=== PATIENT | female | born 1935 | race Caucasian/White ===

== ENCOUNTER → 2016-11-29 | Outpatient (CLI) | payer MEDICARE, BC ==
[~2016-11-29] MED LIST: ARIMIDEX1 M1 PO; ASCORBIC ACID500 MG PO; ASPIRIN EC81 MG PO; BYSTOLIC10 MG PO; BYSTOLIC5 MG PO; CALCIUM + VITA1 EACH PO; CARDIZEM CD (T240 MG PO; CORDARONE,PACE200 MG PO; DIOVAN160 MG PO; DRISDOL 5050000 UNIT PO; EFFEXOR75 MG PO; FLOVENT DISKU100 MCG INH; GLUCOPHAGE500 MG PO; HYZAAR 100-12.1 EACH PO; LANOXIN (DIGI125 MCG PO; LANOXIN (DIGI250 MCG PO; LASIX20 MG PO; LASIX40 MG PO; LEVOTHROID (S100 MCG PO; LOVENOX 6060 MG/0.6 SUB-Q; MOBIC15 MG PO; NORCO 5-325 MG1 TAB PO; NORVASC2.5 MG PO; OCUVITE SOFTGE1 EACH PO; PEPCID AC20 MG PO; POTASSIUM CHLO10 MEQ PO; PRESERVISION L1 EACH PO; SENOKOT8.6 MG PO; STOOL SOFTENER1 EACH PO; VITAMIN D50000 UNIT PO; XARELTO20 MG PO
== END | disposition disaster alternative care site (69) ==
LOC: LCNC 13:04
DX: E03.2 Hypothyroidism due to medicaments and other exogenous substances (principal)

== ENCOUNTER → 2017-01-02 | Day surgery (SDC) | payer MEDICARE, BC ==
[~2017-01-02] VITALS: Ht 165.1 cm; Wt 67.0 kg
== END | disposition disaster alternative care site (69) ==
LOC: GPOC 01-01 15:00 → GSDC 14:08
PROC: 3E0R3BZ Introduction of Anesthetic Agent into Spinal Canal, Percutaneous Approach (ICD-10-PCS; principal; 2017-01-02)
PROC: 3E0R33Z Introduction of Anti-inflammatory into Spinal Canal, Percutaneous Approach (ICD-10-PCS; 2017-01-02)
DX: M54.5 Low back pain (principal); M48.06 Spinal stenosis, lumbar region; E11.9 Type 2 diabetes mellitus without complications; E07.9 Disorder of thyroid, unspecified; Z88.0 Allergy status to penicillin; Z88.8 Allergy status to other drugs, medicaments and biological substances
CPT/HCPCS: J1030; J1040

== ENCOUNTER → 2017-01-20 | Outpatient (CLI) | payer MEDICARE, BC ==
[2017-01-20 13:52] LABS: BASOPHIL % 0.2 %; EOSINOPHIL # 0.1 K/uL (0.0-0.5); EOSINOPHIL % 1.1 %; HEMATOCRIT 38.3 % (30.0-46.0); IMMATURE GRANULOCYTE % 0.4 %; LYMPHOCYTE # 1.1 K/uL (0.8-4.0); LYMPHOCYTE % 20.6 %; MCH 30.4 pg (27.0-34.0); MCHC 33.9 gm/dL (32.0-36.5); MCV 89.5 fl (83.0-98.0); MONOCYTE # 0.4 K/uL (0.0-1.0); MONOCYTE % 8.2 %; MPV 9.6 fl (9.4-12.4); NEUTROPHIL # (ANC) 3.7 K/uL (1.8-7.8); NEUTROPHIL % 69.5 %; NRBC % 0 /100WBC (0-0.00); PLATELET COUNT 181 K/uL (150-450); RBC 4.28 M/uL (3.00-5.00); RDW-CV 13.5 % (11.9-14.6); WBC 5.4 K/uL (4.0-11.0)
[2017-01-20 14:09] LABS: ALBUMIN 3.7 gm/dL (3.5-5.0); ANION GAP 15.2 (10.0-19.0); CALCIUM 8.6 mg/dL (8.5-10.5); CREATININE 1.1 mg/dL (0.5-1.1); PHOSPHORUS 3.4 mg/dL (2.5-4.9); POTASSIUM 4.2 mMol/L (3.7-5.1); TOTAL BILIRUBIN 0.5 mg/dL (0.0-1.5)
== END | disposition disaster alternative care site (69) ==
LOC: LCNC 13:47
PROVIDERS: Internal Medicine Interventional Cardiology
DX: R53.1 Weakness (principal); E03.2 Hypothyroidism due to medicaments and other exogenous substances

== ENCOUNTER → 2017-01-20 | Outpatient (CLI) | payer MEDICARE, BC | END | disposition disaster alternative care site (69) | LOC: GRAD 14:00 | DX: R06.02 Shortness of breath (principal); I70.0 Atherosclerosis of aorta; I77.819 Aortic ectasia, unspecified site; J92.9 Pleural plaque without asbestos; Z98.890 Other specified postprocedural states ==

== ENCOUNTER → 2017-01-21 | Outpatient (CLI) | payer MEDICARE, BC ==
--- NOTE | ~2017-01-21 | ESTC ---
Cardiac Perfusion Imaging Demographics Patient Name MILTON Jaquez Gender Female Patient Number [id number] Race Visit Number [id number] Ethnicity Corporate ID Room Number Accession Number [id number] Height 65 inches Date of 1935 Weight 150 pounds Interpreting Harmeet Dior MD Date of study 01/21/2017 Physician Supervising /SIMONE Zhang NM Technologist Corrina Moralez APRN Ordering Physician Harmeet Dior MD Stress crane service technician Stress ECG Reading Cathleen Zhang Nurse Leah Streeter Physician JULIETH RN Gracie Chinchilla RN The procedure was explained in detail to the patient. Risks, complications and alternative treatments were reviewed. Written consent was obtained. Medications Reviewed with Patient prior to Procedure. Procedure Procedure Type: Nuclear Stress Test:Pharmacological, Cardiolite Stress Test Procedure Start time: 01/21/2017 10:00 Indications: Dyspnea with exertion. Risk Factors The patient risk factors include:hypercholesterolemia, treated hypertension, family history of premature CAD and prior valve surgery/procedure . Conclusions Summary Cardiolite SPECT images demonstrate a septal defect of moderate to severe severity. This is located in the basal septum. TID is at the upper limits of normal at 1.07 Gated images demonstrate mild basal septal hypokinesis with overall preserved left ventricular systolic function. LVEF is 66% Stress Protocols Resting HR:68 bpm Resting BP:186/79 mmHg Pre-stress physical exam: Pharmacologic stress testing was performed due to weakness. BP was elevated prior to the stress. Stress Protocol:Pharmacologic Peak HR:101 bpm HR response: Appropriate Peak BP:171/91 mmHg BP response: Appropriate Predicted HR: 139 bpm HR/BP product:50935 % of predicted HR: 73 Reason for termination:Infusion complete ECG Findings SR with 1 degree AV block Arrhythmias None Symptoms Nausea, chest pressure. Blood pressure remained elevated throughout test. Stress Interpretation Appropriate hemodynamic response to Lexiscan. No significant ST-T wave changes with Lexiscan. ECG portion is negative for ischemia by diagnostic criteria. Stress supervision and interpretation provided by Mariely Connolly APRN . Imaging Results Summed scores - Summed stress score: 15 - Summed rest score: 12 - Summed difference score: 3 Stress ejection Ejection fraction:67 % EDV :78 ml ESV :26 ml Stroke volume :52 ml LV mass :101 gr Imaging Protocols Rest Stress Isotope:Tc99m Sestamibi IV Isotope: Tc99m Sestamibi IV Isotope dose:11.6 mCi Isotope dose:33.1 mCi Date:01/21/2017 07:46 Date:01/21/2017 10:08 Technique: SPECT Technique: Gated Supine SPECT Supine Scan Time:45-60 minutes post Scan Time:45-60 minutes post injection injection Procedure Medications - Regadenoson (Lexiscan) 0.4 mg IV over 10-15 sec. I.V. 0.4 mg. Medical History Admission Data Admission date: 01/21/2017 Admission Time: 07:15 Hospital Status: Outpatient. Signatures dtt: Ovi Ga (cardio) dtd: 01/21/17 1000 Physician Self Edit
== END | disposition disaster alternative care site (69) ==
LOC: GRAD 07:15
DX: R06.00 Dyspnea, unspecified (principal); E78.00 Pure hypercholesterolemia, unspecified; I10 Essential (primary) hypertension; Z82.49 Family history of ischemic heart disease and other diseases of the circulatory system; Z95.2 Presence of prosthetic heart valve
CPT/HCPCS: A9500; J2785

== ENCOUNTER 2017-01-28 06:27 | Outpatient (CLI) | payer MEDICARE, BC ==
[~2017-01-28] VITALS: Ht 165.1 cm; Wt 65.1 kg
--- NOTE | ~2017-01-28 | CATH ---
Cardiac Diagnostic Report Demographics Patient Name MILTON Jaquez Gender Female Date of 1935 Age 81 year(s) Patient Number [id number] Date of Study 01/28/2017 Visit Number [id number] Room Number G6399 [place] [id number] Ht 165.1 cm Wt 29.53 kg Referring Radha Hall Primary Physician Physician MD Performing Harmeet Dior MD Secondary Physician Physician Diagnostic Harmeet Dior MD Assisting Physician Physician Interventional Physician Executive Office Manager Physician Findings and Conclusions Diagnostic Findings and Conclusion Non-obstructive CAD. Elevated right heart pressure. Normal LV function. Diagnostic Recommendations Evaluate for pulmonary causes of dyspnea. Medical therapy. Procedure Description The patient was brought to the diagnostic cardiac catheterization-EP laboratory in the fasting, non-sedated state. Informed consent was obtained in the written and verbal form after the risks and benefits were explained. The patient had no further questions and agreed to proceed. The planned puncture-incision site(s) were shaved and prepped with ChloraPrep and draped in the usual sterile manner. Conscious sedation and pain control medications were delivered by a registered nurse under physician guidance. Surface ECG rhythm, blood pressure measurement, and pulse oximetry were monitored throughout the procedure. Arterial access. The access site was infiltrated with lidocaine. The vessel was entered with the Seldinger technique. A sheath was advanced into the vessel and used for catheter placement. Venous access. The access site was infiltrated with 2% lidocaine. The vessel was entered with the Seldinger technique. A sheath was advanced into the vessel and used for catheter placement. Selective left coronary angiography. A catheter was advanced into the left coronary vessel ostium under Fluoroscopic guidance. Contrast was injected by hand. Images were obtained in multiple projections. Selective right coronary angiography. A catheter was advanced into the right coronary vessel ostium under fluoroscopic guidance. Contrast was injected by hand. Images were obtained in multiple projections. Left heart catheterization. A catheter was advanced across the aortic valve to the left ventricle under fluoroscopic guidance. Resting hemodynamics were obtained. Right heart catheterization. A [place] Ian catheter was successfully advanced to the right atrium, right ventricle, pulmonary artery, and pulmonary artery wedge position under fluoroscopic guidance. Resting hemodynamics were obtained. Measurements included pressures, arterial and venous oxygen saturation samples, and cardiac output. The [place] was removed without difficulty. Arterial and Venous hemostasis was achieved. The patient was transferred to a regular nursing floor via cart accompanied by a nurse. The patient left the laboratory in stable condition. Diagnostic Cath Status: Elective Procedure Procedure Type Diagnostic procedure:Ventriculogram:, Left, Angiography:, Right and Left Heart Cath, Coronary Angios Indications: Dyspnea with exertion, Fatigue, Atrial fibrillation and Positive Nuclear: Intermediate. The procedure was explained in detail to the patient. Risks, complications and alternative treatments were reviewed. Written consent was obtained. Medications Reviewed with Patient prior to Procedure. Angiographic Findings Dominance: Right Cardiac Arteries and Lesion Findings LMCA: Normal (0% Stenosis).Short, large. LAD: Normal (0% Stenosis).Medium. Diag large, ostial plaque. LCx: Normal (0% Stenosis).Large, non-dominant. OM 1 and 2 small. OM 3 large, normal. RCA: Normal (0% Stenosis).Large. PL medium. PDA medium. Procedure Data Procedure Date Date: 01/28/2017Start: 08:00 AMEnd: 08:56 AM Entry Locations - Retrograde Percutaneous access was performed through the Right Femoral artery (Primary location). A 6 Fr sheath was inserted. Hemostasis was successfully obtained using Perclose ProGlide (Chang). Closure Comments: Deployed by Margarito García.. - Antegrade Percutaneous access was performed through the Right Femoral vein. A 7 Fr sheath was inserted. Hemostasis was successfully obtained using Manual Compression. Closure Comments: Pressure held by Margarito García. . Procedure Medications Order and Administration + + +-------+------+ !Time !Medication !Dosage !Route ! + + +-------+------+ !01/28/2017 07:59 AM !Versed !1 mg !I.V. ! + + +-------+------+ !01/28/2017 07:59 AM !Fentanyl !25 mcg !I.V. ! + + +-------+------+ !01/28/2017 08:44 AM !Fentanyl !50 mcg !I.V. ! + + +-------+------+ Devices Used - A5 Fr. BS Angled Pigtail Diag. Catheterwas used for:Left ventriculography. - A6 Fr. BS JL 4 Diag. Catheterwas used for:Left coronary angiography. - A6 Fr. BS JR 4 Diag. Catheterwas used for:Right coronary angiography. Contrast Material - Isovue 180345 ml Fluoroscopy Time: Diagnostic: 6:18 minutes. Total: 6:18 minutes. Fluoroscopy Dose: Diagnostic: 634 mGy. Total: 634 mGy. Estimated Blood Loss: 4 ml. Medical History Performed Procedures and Imaging Results - Stress testing with SPECT MPIwas performed. Results were: Positive. Allergies - Penicillin. - Other:(betablockers, statins). Risk Factors The patient risk factors include:treated hypercholesterolemia, treated hypertension, family history of premature CAD, orally-treated diabetes mellitus, last creatinine: 1.1 mg/dl, creatinine clearance: 18.7 ml/min, prior valve surgery/procedure, dyslipidemia and previous femoral procedure. Admission Data Admission Date: 01/28/2017 Admission Time: 06:27 AM Admit Source: Other Insurance Payors: Medicare. Admission Medications + +------+-------+ + + + + !Medication!Dosage!Times !Last !Last !Administered !Comments ! ! ! !Per Day!Delivery !Delivery ! ! ! ! ! ! !Date !Time ! ! ! + +------+-------+ + + + + !ARB (any) ! ! ! ! ! ! ! + +------+-------+ + + + + [facility] Ventriculography Findings Hyperkinetic. EF 70-75%. No MR. LV function assessed as:Abnormal. Ejection Fraction - 01/28/2017 - Method: LV gram. EF%: 75. Hemodynamics Condition: Rest O2 Consumption: Estimated: 114.11Heart Rate: 78 bpm Oxygen Saturation +--------+-----+----+ +---+ + !Location!pCO2 !pO2 !% Saturation !Hgb!O2 Content ! +--------+-----+----+ +---+ + !SVC ! ! !65.7 !13 ! ! +--------+-----+----+ +---+ + !IVC ! ! !77.5 !13 ! ! +--------+-----+----+ +---+ + !RA ! ! !67.9 !13 ! ! +--------+-----+----+ +---+ + !PA ! ! !69.3 !13 ! ! +--------+-----+----+ +---+ + !FA ! ! !94.4 !13 ! ! +--------+-----+----+ +---+ + Pressures (mmHg) +-----+ + !Site !Pressure ! +-----+ + !RA !2/1 (0) ! +-----+ + !RV !11/0 ,1 ! +-----+ + !PCW !16 (10) ! +-----+ + !PA !17/08 (11) ! +-----+ + !LV !184/ ,12 ! +-----+ + !PA !20/08 (13) ! +-----+ + !LV !184/4 ,13 ! +-----+ + !PA ! (17) ! +-----+ + !LV !180/1 ,11 ! +-----+ + !PCW !1620 (11) ! +-----+ + !LV !182/0 ,12 ! +-----+ + !PA !37/ (23) ! +-----+ + !LV !186/4 ,13 ! +-----+ + !PA !36/ (23) ! +-----+ + !LV !179/2 ,11 ! +-----+ + !LV !178/4 ,12 ! +-----+ + !LV !172/2 ,12 ! +-----+ + !LV !170/3 ,12 ! +-----+ + !AO !180/73 (118) ! +-----+ + !LV !171/2 ,12 ! +-----+ + !AO !182/75 (119) ! +-----+ + !RV !46/5 ,9 ! +-----+ + !RV !44/1 ,8 ! +-----+ + !RV !46/ ,9 ! +-----+ + !RA !05/05 (4) ! +-----+ + Cardiac Output + + +------+ !Time !Cardiac Output (l/min) !Use ! + + +------+ !01/28/2017 08:28 AM !5.06 !True ! + + +------+ !01/28/2017 08:29 AM !4.58 !True ! + + +------+ !01/28/2017 08:33 AM !4.45 !False ! + + +------+ !01/28/2017 08:33 AM !5.28 !True ! + + +------+ !01/28/2017 08:34 AM !5.03 !True ! + + +------+ !01/28/2017 08:34 AM !5.63 !False ! + + +------+ Cardiac Output +-------+ + + + !Method !CO (l/min) !CI (l/min/m2) !SV (ml) ! +-------+ + + + !Ariadna !2.57 !2.1 !32.87 ! +-------+ + + + !Thermal!4.9875 !4.1 !59.2 ! +-------+ + + + Valve Gradients and Areas + +--------+--------+--------+---------+ + + !Valve !Peak !Mean !Area !Index !Flow !Source ! + +--------+--------+--------+---------+ + + !Aortic !0 !0 ! ! !755.88 !Ariadna ! + +--------+--------+--------+---------+ + + !Aortic !0 !0 ! ! !1466.91 !Thermal ! + +--------+--------+--------+---------+ + + Shunts Oxygen Values O2 Consumption 114.11 Flows (l/min) Qs 2.51 Vascular Resistance (dynes x sec x cm-5) + +-----+-----+----+----+---------+-------+ !CO method !TSVR !SVR !TPVR!PVR !TPVR/TSVR!PVR/SVR! + +-----+-----+----+----+---------+-------+ !Ariadna !46.25!44.67!9.03!4.63!0.2 !0.1 ! + +-----+-----+----+----+---------+-------+ !Thermal !23.83!23.02!4.66!2.39!0.2 !0.1 ! + +-----+-----+----+----+---------+-------+ !Qp or Qs !47.36!45.74! ! ! ! ! + +-----+-----+----+----+---------+-------+ Discharge Data Discharge Date: 01/28/2017 Hospital Status: Outpatient Signatures dtt: Ovi Ga (cardio) dtd: 01/28/17 0800 Physician Self Edit
[~2017-01-28 06:27] MED LIST changes: -FLOVENT DISKU100 MCG INH; -LANOXIN (DIGI250 MCG PO; -LASIX20 MG PO; -LOVENOX 6060 MG/0.6 SUB-Q; -SENOKOT8.6 MG PO; -VITAMIN D50000 UNIT PO
[2017-02-17] MEDS ORDERED: CORDARONE,PACE200 MG PO (16:29)
[2017-02-17] MEDS ORDERED: FLOVENT DISKU100 MCG INH (16:35)
[2017-02-17] MEDS ORDERED: SENOKOT8.6 MG PO (16:39)
[2017-02-17] MEDS ORDERED: LANOXIN (DIGI250 MCG PO (16:42)
[2017-05-08] MEDS ORDERED: VITAMIN D50000 UNIT PO (10:54)
[2017-05-08] MEDS ORDERED: LOVENOX 6060 MG/0.6 SUB-Q (10:56)
[2017-05-14] MEDS ORDERED: LASIX20 MG PO (12:16)
== END 2017-01-28 12:30 | disposition disaster alternative care site (69) ==
LOC: GPCU 06:27 → GPOC 06:27
PROC: 4A023N8 Measurement of Cardiac Sampling and Pressure, Bilateral, Percutaneous Approach (ICD-10-PCS; principal; 2017-01-28)
PROC: B216YZZ Fluoroscopy of Right and Left Heart using Other Contrast (ICD-10-PCS; 2017-01-28)
DX: R94.39 Abnormal result of other cardiovascular function study (principal); I20.0 Unstable angina
CPT/HCPCS: C1760; J1644; J2001; J2250; J3010; J7030; J7060

== ENCOUNTER → 2017-01-29 | Outpatient (CLI) | payer MEDICARE, BC ==
[~2017-01-29] MED LIST changes: +FLOVENT DISKU100 MCG INH; +LANOXIN (DIGI250 MCG PO; +LASIX20 MG PO; +LOVENOX 6060 MG/0.6 SUB-Q; +SENOKOT8.6 MG PO; +VITAMIN D50000 UNIT PO
--- NOTE | ~2017-01-29 | PUL ---
PATIENT'S NAME: DERRICK ROSE [facility] AGE: 81 Y [address] ROOM: [place] [address] LOCATION: [facility] ADMIT DATE: 01/29/2017 Pulmonary DISCHARGE DATE: FAMILY PHYSICIAN: Brooks Garcia MD ATTENDING PHYSICIAN: Ovi Ga NAME OF PROCEDURE: Pulmonary Function Test DATE OF PROCEDURE: January 29, 2017 TECH: ATripe, IT NETWORK ENGINEER REASON FOR EXAM: Shortness of breath RESULTS: Spirometry reveals normal FVC at 2.52 which is 94% predicted, normal FEV1 at 1.62 which is 81% predicted, normal FEV1/FVC ratio at 64%, there is no significant bronchodilator response. Lung volumes reveal normal TLC at 4.42 which is 90% predicted, normal VC at 2.5 which is 94% predicted, normal RV at. 0.77 which is 84% predicted, RV/TLC ratio is normal at 43%. PHYSICIAN INTERPRETATION: This is an essentially normal pulmonary function test. Although the FEV1/FVC ratio is below the goal standard of 70 it lies within the normal confidence interval subsequently this is a normal pulmonary function test. Thank you for allowing me to consult of this patient. MD MERON CLAY/denzel /[id number] dtt: 02/10/17 1043 , Migel Cleary. dtd: 01/30/17 1213
== END | disposition disaster alternative care site (69) ==
LOC: GRTH 08:42
DX: R06.02 Shortness of breath (principal); F17.200 Nicotine dependence, unspecified, uncomplicated

== ENCOUNTER → 2017-02-18 | Day surgery (SDC) | payer MEDICARE, BC ==
[~2017-02-18] VITALS: Ht 165.1 cm; Wt 65.4 kg
--- NOTE | ~2017-02-18 | OR ---
PATIENT'S NAME: DERRICK ZARATE [facility] AGE: 81 Y [address] ROOM: [place] [address] LOCATION: [facility] ADMIT DATE: 02/18/2017 OR/Procedure Report DISCHARGE DATE: FAMILY PHYSICIAN: Brooks Garcia MD ATTENDING PHYSICIAN: Agustin Anderson SURGEON: Agustin Anderson MD INTERNAL CORROSION SPECIALIST: DATE OF PROCEDURE: 02/18/2017 PROCEDURE PERFORMED: Cardioversion. INDICATION: Recurrent atrial fibrillation refractory to antiarrhythmic drug therapy. DESCRIPTION OF PROCEDURE: Mrs. Zarate was brought to the preop suite in the fasting state and prepped and draped in the normal manner. Patches were placed in the AP dimension. Next, propofol was administered through the nurse sales professional bilingual. A total of 60 mg was given. Once adequate levels of sedation were obtained, 200 joules of synchronized therapy was delivered with prompt congregation of normal sinus rhythm. A 12- lead EKG is pending at the time of this dictation. CONCLUSIONS: 1. Successful congregation of normal sinus rhythm using direct current cardioversion. 2. A 12-lead EKG pending at the time of this dictation. 3. The patient will continue on antiarrhythmic drug therapy and follow up with me in 2 weeks. I would like to thank Dr. Garcia for the opportunity to participate in the care of Mrs. Zarate. AGUSTIN ANDERSON MD DJM/modl /[id number] CC: Brooks Garcia MD d: 02/19/17 1047 t: 02/26/17 1219, OPERATIVE SUMMARY
== END | disposition disaster alternative care site (69) ==
LOC: GPOC 02-17 16:00 → GSDC 08:56 → EDSTATUS 09:00 → GPOC 09:00
DX: I48.1 Persistent atrial fibrillation (principal); T46.2X5A Adverse effect of other antidysrhythmic drugs, initial encounter; E78.00 Pure hypercholesterolemia, unspecified; I10 Essential (primary) hypertension; M19.90 Unspecified osteoarthritis, unspecified site; M81.0 Age-related osteoporosis without current pathological fracture; E11.9 Type 2 diabetes mellitus without complications; E78.5 Hyperlipidemia, unspecified; G43.909 Migraine, unspecified, not intractable, without status migrainosus; K21.9 Gastro-esophageal reflux disease without esophagitis; I34.0 Nonrheumatic mitral (valve) insufficiency; E03.2 Hypothyroidism due to medicaments and other exogenous substances; Z85.3 Personal history of malignant neoplasm of breast; Z98.41 Cataract extraction status, right eye; Z98.42 Cataract extraction status, left eye; Z90.710 Acquired absence of both cervix and uterus; Z98.890 Other specified postprocedural states; Z79.899 Other long term (current) drug therapy; Z88.8 Allergy status to other drugs, medicaments and biological substances; Z88.0 Allergy status to penicillin
CPT/HCPCS: J2001; J7030

== ENCOUNTER 2017-02-25 09:07 | Day surgery (SDC) | payer MEDICARE, BC ==
[~2017-02-25] VITALS: Ht 165.1 cm; Wt 66.8 kg
--- NOTE | ~2017-02-25 | OR ---
PATIENT'S NAME: DERRICK ROSE [facility] AGE: 81 Y [address] ROOM: [place] [address] LOCATION: [facility] ADMIT DATE: 02/25/2017 OR/Procedure Report DISCHARGE DATE: 02/26/2017 FAMILY PHYSICIAN: Brooks Garcia MD ATTENDING PHYSICIAN: Agustin Ga SURGEON: Agustin Ga MD DATABASE MARKETING ANALYST: DATE OF PROCEDURE: 02/25/2017 INDICATION: Sick sinus syndrome, now with persistent atrial fibrillation PROCEDURE: Dual chamber pacemaker implantation PROCEDURE/FINDINGS: Patient was brought to cardiac roofing laborer in the fasting state and prepped and draped in the normal manner. Versed and fentanyl were given for conscious sedation. 1% lidocaine was used for local skin infiltration of the left infraclavicular region. 18 gauge Cook needle was advanced to the left subclavian vein through which an 0.025 wire was placed. Needle was removed. Proximal end of the were was attached to the surgical gown. Next, a second access point was also obtained with the 18 gauge Cook needle. 0.025 wire was placed. Needle was removed. Proximal end of the wire was attached to the surgical gown with a hemostat. Attention was then turned towards creation of the pacemaker pocket where additional 1% lidocaine was given. Next, a #11 blade was used for primary skin incision. Following this using Bovie cautery as well as blunt dissection, the pectoralis muscle was identified. This is entered into and dissected both cephalad as well as caudally. The previously placed 0.025 wires were brought through the skin into the pacemaker pocket. The first wire had a 7F sheath placed onto it. Wire and dilator were removed. Using fluoroscopic guidance, the right ventricular lead was placed. This is a [employer] INGEVITY lead, model #7741, serial #[id number]. Thresholds were obtained showing an intrinsic R-wave of 6.4 mV, threshold 0.5 at 0.4 milliseconds pulse width, impedance of 839 ohms. Next, the shoulder sleeve was sewn into the pectoralis muscle using two interrupted sutures of zero silk. The second wire had a 7F sheath placed onto it. Wire and dilator were removed. Using fluoroscopic guidance, right atrial lead was placed. This was a [employer] INGEVITY lead, model #36200, serial #[id number]. Thresholds show an intrinsic P wave of 1.4 mV, impedance of 888 ohms; patient was noted to be in atrial fibrillation. Two interrupted sutures of zero silk were used to anchor the shoulder sleeve into the pectoralis muscle. Following this, both of these leads were then connected to the pacemaker generator which is a [employer] ESSENTIO, model # L111, serial # [id number]. Subcutaneous layer was closed with 2-0 Vicryl in a running fashion. Following this the subcuticular layer was closed with 4.0 Vicryl also in running fashion. Steri-strips were applied as well as a PATIENT'S NAME: DERRICK ROSE [facility] AGE: 81 Y [address] ROOM: [place] [address] LOCATION: [facility] ADMIT DATE: 02/25/2017 OR/Procedure Report DISCHARGE DATE: 02/26/2017 FAMILY PHYSICIAN: Brooks Garcia MD ATTENDING PHYSICIAN: Agustin Ga pressure dressing and Tegaderm dressing. There were no complications. CONCLUSION: 1. Dual-chamber pacemaker implantation for sick sinus syndrome. 2. Patient is instructed not to use her left arm for one week, patient is to continue the use of the shoulder immobilizer. 3. Patient will be set up for the home use of the CEYX remote monitoring system. AGUSTIN GA MD DJM/gb /[id number] CC: Printer CARDIOPULMINARY d: 03/18/17 1201 t: 03/21/17 0913, OPERATIVE SUMMARY
[~2017-02-25 09:07] MED LIST changes: -LASIX20 MG PO; -LOVENOX 6060 MG/0.6 SUB-Q; -VITAMIN D50000 UNIT PO
--- NOTE | 2017-02-25 19:13 | NUR ---
Significant Event: A/O x3, [facility]. VSS, SBP 138, HRs 70-90s, on room air. No c/o pain. Pace maker site to L) subclavian, covered with gauze et transparent dressing; dressing C/D/I. L) arm in immobilizer; patient reminded not to use are. Up to bathroom with SBA; up in chair. Follow up: D/C home tomorrow
--- NOTE | 2017-02-26 04:16 | NUR ---
Significant Event: A/0 X 3, AMBULATES STAND BY ASSIST. HR PACED 70-80'S, SBP 120'S TO 130'S. LEFT SUBLCAVIAN PACEMAKER SITE DRESSING C/D/I, WITH NO COMPLICATIONS, VERY MILD EDEMA. SHE HAS HAD NO COMPLICATIONS THIS EVENING AND RESTED WELL. 1 NORCO GIVEN X 1 AT 2109. Follow up: DISCHARGE TODAY.
--- NOTE | 2017-02-26 10:33 | NUR ---
DISCHARGE: A/O X3 UP AD [facility]. VSS. C/O MILD PAIN TO LEFT CHEST INCISION SITE, ICE PACK APPLIED. PIV DC'D, GAUZE, TAPE AND COBAN APPLIED. DRESSING TO CHEST C/D/I. HOME CARE FOR PACER SITE GIVEN. MED CHANGES DISCUSSED. ASSISTED WITH DRESSING. LEFT ARM IMMOBILIZER IN PLACE. TAKEN TO [facility] BY WHEELCHAIR BY ANIMAL LABORATORY HELPER @ [id number]. PRESENT AT TIME OF DISCHARGE.
[2017-05-08] MEDS ORDERED: VITAMIN D50000 UNIT PO (10:54)
[2017-05-08] MEDS ORDERED: LOVENOX 6060 MG/0.6 SUB-Q (10:56)
[2017-05-14] MEDS ORDERED: LASIX20 MG PO (12:16)
== END 2017-02-26 09:30 | disposition disaster alternative care site (69) ==
LOC: GPCU 09:07 → GPOC 09:07 → GPCU 13:36 → GPOC 02-26 09:30
PROC: 0JH606Z Insertion of Pacemaker, Dual Chamber into Chest Subcutaneous Tissue and Fascia, Open Approach (ICD-10-PCS; principal; 2017-02-25)
PROC: 02H63JZ Insertion of Pacemaker Lead into Right Atrium, Percutaneous Approach (ICD-10-PCS; 2017-02-25)
PROC: 02HK3JZ Insertion of Pacemaker Lead into Right Ventricle, Percutaneous Approach (ICD-10-PCS; 2017-02-25)
DX: I49.5 Sick sinus syndrome (principal); I48.1 Persistent atrial fibrillation; I10 Essential (primary) hypertension; E11.9 Type 2 diabetes mellitus without complications; E03.9 Hypothyroidism, unspecified; E78.5 Hyperlipidemia, unspecified; G43.909 Migraine, unspecified, not intractable, without status migrainosus; K21.9 Gastro-esophageal reflux disease without esophagitis; Z87.01 Personal history of pneumonia (recurrent); Z79.01 Long term (current) use of anticoagulants; Z79.899 Other long term (current) drug therapy; Z88.0 Allergy status to penicillin; Z88.8 Allergy status to other drugs, medicaments and biological substances; Z90.710 Acquired absence of both cervix and uterus; Z90.79 Acquired absence of other genital organ(s); Z98.41 Cataract extraction status, right eye; Z98.42 Cataract extraction status, left eye; Z98.890 Other specified postprocedural states
CPT/HCPCS: C1785; C1898; J2001; J2250; J3010; J3370; J7030

== ENCOUNTER → 2017-03-10 | Outpatient (CLI) | payer MEDICARE, BC ==
[~2017-03-10] MED LIST changes: +LASIX20 MG PO; +LOVENOX 6060 MG/0.6 SUB-Q; +VITAMIN D50000 UNIT PO
== END | disposition disaster alternative care site (69) ==
LOC: GRAD 14:13
DX: Z48.812 Encounter for surgical aftercare following surgery on the circulatory system (principal); I70.0 Atherosclerosis of aorta; I77.819 Aortic ectasia, unspecified site; Z95.0 Presence of cardiac pacemaker

== ENCOUNTER → 2017-05-14 | Day surgery (SDC) | payer MEDICARE, BC ==
[~2017-05-14] VITALS: Ht 165.1 cm; Wt 65.0 kg
== END | disposition disaster alternative care site (69) ==
LOC: GPOC 05-08 14:00 → GSDC 11:49 → GPOC 13:00
PROC: 3E0R33Z Introduction of Anti-inflammatory into Spinal Canal, Percutaneous Approach (ICD-10-PCS; principal; 2017-05-14)
DX: G89.29 Other chronic pain (principal); M48.06 Spinal stenosis, lumbar region; I25.10 Atherosclerotic heart disease of native coronary artery without angina pectoris; I48.2 Chronic atrial fibrillation; I10 Essential (primary) hypertension; E11.9 Type 2 diabetes mellitus without complications; E78.5 Hyperlipidemia, unspecified; E03.2 Hypothyroidism due to medicaments and other exogenous substances; I49.5 Sick sinus syndrome; G43.909 Migraine, unspecified, not intractable, without status migrainosus; K21.9 Gastro-esophageal reflux disease without esophagitis; Z87.01 Personal history of pneumonia (recurrent); Z79.01 Long term (current) use of anticoagulants; Z79.899 Other long term (current) drug therapy; Z85.3 Personal history of malignant neoplasm of breast; Z90.710 Acquired absence of both cervix and uterus; Z95.0 Presence of cardiac pacemaker; Z90.11 Acquired absence of right breast and nipple; Z98.41 Cataract extraction status, right eye; Z98.42 Cataract extraction status, left eye; Z98.890 Other specified postprocedural states
CPT/HCPCS: J1040